=== PATIENT | female | born 1995 | race Caucasian/White ===

== ENCOUNTER 2020-10-05 14:01 | Emergency (ER) | payer MEDICAID ==
[~2020-10-05] VITALS: Ht 170.2 cm; Wt 72.6 kg
[2020-10-05] MEDS ORDERED: IV NORMAL SALINE 1000 ML BAG IV ONE (14:30)
[2020-10-05] MEDS ORDERED: METOCLOPRAMIDE HCL 10 MG/2 ML VIAL IM ONE (14:30)
[2020-10-05] MEDS ORDERED: ACETAMINOPHEN ES 500 MG TABLET PO ONE (14:30)
[2020-10-05 14:59] LABS: BASOPHILS # (AUTO) 0.1 K/uL (0.0-8.0); BASOPHILS % (AUTO) 0.7 % (0.0-2.0); EOSINOPHILS # (AUTO) 0.4 K/uL (0.0-0.7); EOSINOPHILS % (AUTO) 4.9 % (0.0-7.0); HEMOGLOBIN 14.6 g/dL (10.9-14.3); LYMPHOCYTES # (AUTO) 2.5 K/uL (20.0-40.0); LYMPHOCYTES % (AUTO) 33.1 % (20.5-51.5); MEAN CORPUSCULAR HEMOGLOBIN 29.4 uug (24.7-32.8); MEAN CORPUSCULAR HGB CONC 34 g/dL (32.3-35.6); MEAN CORPUSCULAR VOLUME 86.9 fL (75.5-95.3); MONOCYTES # (AUTO) 0.3 K/uL (2.0-10.0); MONOCYTES % (AUTO) 4.5 % (0.0-11.0); NEUTROPHILS # (AUTO) 4.3 K/uL (1.8-8.9); NEUTROPHILS % (AUTO) 56.8 % (38.5-71.5); PLATELET COUNT (AUTO) 330 K/uL (179-408); RED BLOOD CELL COUNT(AUTO) 4.95 MIL/uL (3.63-4.92); WHITE BLOOD COUNT (AUTO) 7.6 K/uL (3.8-11.8)
[2020-10-05] MEDS ORDERED: METOCLOPRAMIDE HCL 10 MG/2 ML VIAL IV ONE (15:00)
[2020-10-05] MEDS ORDERED: METOCLOPRAMIDE HCL 10 MG/2 ML VIAL ONE (15:05)
[2020-10-05] MEDS ORDERED: ACETAMINOPHEN ES 500 MG TABLET ONE (15:05)
[2020-10-05 15:08] LABS: CREATININE 0.9 mg/dL (0.6-1.3); POTASSIUM 3.5 mmol/L (3.5-5.1)
[2020-10-05 15:14] LABS: BILIRUBIN,DIRECT 0.2 mg/dL (0.0-0.2); BILIRUBIN,TOTAL 0.6 mg/dL (0.2-1.0); TOTAL PROTEIN, SERUM 8.5 g/dL (6.4-8.2)
--- NOTE | 2020-10-05 16:45 | NUR ---
IV removed. Catheter intact and site benign. Pressure and 4x4 gauze applied to site. No bleeding noted.
--- NOTE | 2020-10-05 16:55 | NUR ---
Patient eloped from facility. ER physician notified.
[2020-10-05 17:18] LABS: *BILIRUBIN,URIN NEGATIVE (NEGATIVE); *CLARITY,URINE CLEAR (CLEAR); *COLOR,URINE YELLOW (YELLOW); *KETONES,URINE NEGATIVE (NEGATIVE); *UROBILINOGEN,URINE 0.2 E.U./dl (NORMAL); LEUKOCYTE ESTERASE ,URINE NEGATIVE (NEGATIVE); NITRITE, URINE NEGATIVE (NEGATIVE); UGLUCOSE NEGATIVE (NEGATIVE)
[2020-10-05 17:19] LABS: *BLOOD, URINE TRACE INTACT (NEGATIVE)
[2020-10-05 17:20] LABS: *URINE HCG, QUAL NEGATIVE (NEGATIVE)
[2020-10-05 17:26] LABS: *AMPHETAMINE, URINE NEGATIVE (NEGATIVE); *CANNABINOID, URINE POSITIVE (NEGATIVE); *COCCAINE, URINE NEGATIVE (NEGATIVE); *OPIATE, URINE NEGATIVE (NEGATIVE); *PHENCYCLIDINE SCREEN,URINE NEGATIVE (NEGATIVE)
== END 2020-10-05 17:01 | disposition left against medical advice (07) ==
LOC: ER 14:01
DX: N93.9 Abnormal uterine and vaginal bleeding, unspecified (principal); J45.909 Unspecified asthma, uncomplicated; F17.210 Nicotine dependence, cigarettes, uncomplicated; Z86.59 Personal history of other mental and behavioral disorders
CPT/HCPCS: 36415; 76856; 80048; 80076; 80307; 81001; 84702; 84703; 85025; 86850; 86900; 86901; 96361; 96374; 99284; J2765; A4663; A9150; J7030

== ENCOUNTER 2020-10-28 08:08 | Emergency (ER) | payer MEDICAID ==
[~2020-10-28] VITALS: Ht 170.2 cm; Wt 72.6 kg
[2020-10-28] MEDS ORDERED: HALOPERIDOL LACTATE 5 MG/1 ML VIAL IM ONE (08:15)
[2020-10-28] MEDS ORDERED: HALOPERIDOL LACTATE 5 MG/1 ML VIAL ONE (08:15)
[2020-10-28] MEDS ORDERED: LORAZEPAM 2 MG/1 ML VIAL ONE (08:15)
[2020-10-28] MEDS ORDERED: LORAZEPAM 2 MG/1 ML VIAL IM ONE (08:15)
--- NOTE | 2020-10-28 08:20 | NUR ---
Pt placed on 5150 hold (DTS) by [employer].
[2020-10-28 09:19] LABS: BASOPHILS % (AUTO) 0.5 % (0.0-2.0); EOSINOPHILS # (AUTO) 0.2 K/uL (0.0-0.7); HEMATOCRIT 41.2 % (31.2-41.9); HEMOGLOBIN 14.5 g/dL (10.9-14.3); LYMPHOCYTES # (AUTO) 2.2 K/uL (20.0-40.0); MEAN CORPUSCULAR HEMOGLOBIN 30.2 uug (24.7-32.8); MEAN CORPUSCULAR HGB CONC 35 g/dL (32.3-35.6); MEAN CORPUSCULAR VOLUME 85.7 fL (75.5-95.3); MONOCYTES # (AUTO) 0.3 K/uL (2.0-10.0); MONOCYTES % (AUTO) 3.9 % (0.0-11.0); NEUTROPHILS # (AUTO) 5.3 K/uL (1.8-8.9); NEUTROPHILS % (AUTO) 65.6 % (38.5-71.5); PLATELET COUNT (AUTO) 220 K/uL (179-408); RED BLOOD CELL COUNT(AUTO) 4.81 MIL/uL (3.63-4.92)
--- NOTE | 2020-10-28 09:30 | NUR ---
Pt sleeping with NAD noted.
[2020-10-28 09:35] LABS: ALANINE AMINOTRANSFERASE 20 U/L (14-59); ALKALINE PHOSPHATASE 51 U/L (50-136); ASPARTATE AMINOTRANSFERASE 11 U/L (15-37); BILIRUBIN,DIRECT 0.2 mg/dL (0.0-0.2); BILIRUBIN,TOTAL 0.6 mg/dL (0.2-1.0); CARBON DIOXIDE 24 mmol/L (21-32); CHLORIDE 105 mmol/L (98-107); CREATININE 0.9 mg/dL (0.6-1.3); GLUCOSE 86 mg/dL (74-106); POTASSIUM 3.5 mmol/L (3.5-5.1); TOTAL PROTEIN, SERUM 8.4 g/dL (6.4-8.2); UREA NITROGEN, BLOOD 14 mg/dL (7-18)
[2020-10-28 09:36] LABS: ETHANOL < 3 MG/DL (0-0)
[2020-10-28 09:37] LABS: ACETAMINOPHEN < 2.0 ug/mL (10-30)
--- NOTE | 2020-10-28 11:30 | NUR ---
Pt sleeping with NAD noted.
--- NOTE | 2020-10-28 12:00 | NUR ---
Received telephone call from Gudelia ([phone]) who stated she is the pt's mother. Per Gudelia pt was d/c from and inpatient [facility] ([facility] about a week ago. She has not taken the meds (names mirik) she was prescribed and has not gone to outpatient follow up as instructed.
--- NOTE | 2020-10-28 15:00 | NUR ---
Pt is still sleeping, arousable to verbal stimuli, NAD noted.
--- NOTE | 2020-10-28 15:12 | NUR ---
Rn Plastics Note: Patient remains on a 5150 hold; patient is currently not alert and therefore not able to be interviewed. ANDREZ faxed patient's face sheet to Olvin at [facility] (fax [phone]; tel # [phone]) and to [facility] (fax [phone]; tel [phone]). Olvin confirmed receipt of the facesheet. ANDREZ also spoke with Art at [facility] [phone], who confirmed receipt of the face sheet. ANDREZ informed both Olvin and [place] that as soon as patient is medically cleared, additional clinical records will be faxed over for review. Both Olvin and [place] expressed agreement. PLAN: logistics loss prevention manager to be called for assessment once patient is alert and able to be interviewed. Will work on placement, based on assignment desk editor assessment and patient's needs.
--- NOTE | 2020-10-28 16:28 | NUR ---
ANDREZ faxed ED physicians notes, ED summary report, labs, and copy of 5150 hold to [facility], fax [phone] (tel # [phone]).
--- NOTE | 2020-10-28 16:30 | NUR ---
COVID results and toxicology results pending. Will fax to [facility] once results are obtained.
--- NOTE | 2020-10-28 16:42 | NUR ---
SW called [facility] tel # [phone] and spoke with Zhou, who confirmed receipt of clinicals faxed by this SW.
--- NOTE | 2020-10-28 16:49 | NUR ---
Since patient is already on a 5150 hold, calling bicycle racer will not be necessary at this time. Psychiatric placement is being coordinated with [facility], .
--- NOTE | 2020-10-28 17:00 | NUR ---
Received telephone call from Randolph who stated pt has been accepted at [facility] pending COVID and urine drug screen results. Fax results to [facility] ) when available. FYI: telephone # for [facility] [phone]. Pt is awake, alert, oriented, calm and cooperative at this time. Pt states she is unable to provide urine sample, pt was provided water as requested.
--- NOTE | 2020-10-28 17:03 | NUR ---
ANDREZ spoke with ED RN Ralf regarding pending toxicology and COVID results. Ralf will fax results to [facility] upon receipt, tel [phone], fax [phone]. Pending review by [facility] of all clinicals and labs, patient will be transferred by ambulance to [facility], inpatient psychiatric unit, [address] [place] [address].
--- NOTE | 2020-10-28 17:30 | NUR ---
Urine specimen collected and sent to lab.
--- NOTE | 2020-10-28 17:33 | NUR ---
Pt eating dinner, NAD noted.
--- NOTE | 2020-10-28 18:00 | NUR ---
Received telephone call from lab stating they do not have enough urine to do a urine drug screen. Pt states she can not provide antother urine specimen at this time. Pt was given more water.
--- NOTE | 2020-10-28 19:09 | NUR ---
Pt resting with NAD noted. Report given to evening or night nurse supervisor.
--- NOTE | 2020-10-28 20:31 | NUR ---
[facility] WAS CALLED THEY HAVE NO AVAILABLE AMBULANCE AT THIS TIME EXT [phone]
--- NOTE | 2020-10-28 20:32 | NUR ---
[facility] WAS CALLED THEY HAVE [phone] AT [address] TO [facility].
--- NOTE | 2020-10-28 20:36 | NUR ---
BEATRIZ FROM [facility] CALLED [phone] SHERLYN FROM [facility] ACCEPTING NURSE. WILL CALL FOR REPORT. PATIENT IN BED ASLEEP.
--- NOTE | 2020-10-28 21:11 | NUR ---
Nurse Wyman accepted patient to [facility] room [address] accepting Nurse Azar lópez
--- NOTE | 2020-10-28 21:38 | NUR ---
REPORT GIVEN TO BERNARDO PEREZ AT [facility].
--- NOTE | 2020-10-28 22:00 | NUR ---
PATIENT IN BED ASLEEP.
--- NOTE | 2020-10-28 22:40 | NUR ---
REPORT GIVEN TO UN[address] [facility].
== END 2020-10-28 22:50 ==
LOC: ER 08:08
DX: F29 Unspecified psychosis not due to a substance or known physiological condition (principal); R45.1 Restlessness and agitation; Z20.828 Contact with and (suspected) exposure to other viral communicable diseases; J45.909 Unspecified asthma, uncomplicated; Z86.59 Personal history of other mental and behavioral disorders
CPT/HCPCS: 36415; 80048; 80076; 80299; 80320; 84702; 85025; 87426; 96372 ×2; 99291; J1630; J2060; A4663; G0480